=== PATIENT | male | born 1990 | race Caucasian/White ===

== ENCOUNTER 2019-03-17 20:13 | Emergency (ER) | payer SELFPAY ==
[~2019-03-17] VITALS: Ht 180.3 cm; Wt 65.2 kg
[~2019-03-17 20:13] MED LIST: ALBU18HF INHALATION; LORA1TAB PO; PRED20TA PO
[2019-03-17 20:20] VITALS: Ht 180.3 cm; Wt 65.2 kg
[2019-03-17 20:51] VITALS: BP 141/81; PULSE 71; RESP 22
[2019-03-17] MEDS ORDERED: LORAZEPAM 1 MG TAB PO ONE (21:00)
[2019-03-17] MEDS ORDERED: predniSONE 20 MG TAB PO ONE (21:00)
== END 2019-03-17 20:53 | disposition home or self-care (01) ==
LOC: E/R 20:13
DX: F41.9 Anxiety disorder, unspecified (principal); J45.21 Mild intermittent asthma with (acute) exacerbation
CPT/HCPCS: 99283; J7512